=== PATIENT | female | born 1990 | race Caucasian/White ===

== ENCOUNTER 2017-01-27 21:40 | Emergency (ER) | payer OTHER ==
[~2017-01-27] VITALS: Ht 152.4 cm; Wt 88.0 kg
[~2017-01-27 21:40] MED LIST: NO HOME MEDS
[2017-01-28 00:53] VITALS: BP 105/80
== END 2017-01-28 00:55 | disposition home or self-care (01) ==
LOC: EME 21:40
DX: S09.90XA Unspecified injury of head, initial encounter (principal); W01.198A Fall on same level from slipping, tripping and stumbling with subsequent striking against other object, initial encounter; Z87.891 Personal history of nicotine dependence; Z88.6 Allergy status to analgesic agent
CPT/HCPCS: 70150; 99281; 99284